=== PATIENT | female | born 1970 | race African-American/Black ===

== ENCOUNTER 2017-02-17 02:16 | Emergency (ER) | payer BC, MEDICAID ==
[~2017-02-17] VITALS: Ht 170.2 cm; Wt 114.0 kg
[2017-02-17] MEDS ORDERED: KETOROLAC 30MG/ML VIAL IV ONE (03:30)
[2017-02-17] MEDS ORDERED: HYDROCODONE/ACETAMINOPHEN 5/325MG TABLET PO ONE (03:30)
[2017-02-17] MEDS ORDERED: CLONIDINE 0.2MG TABLET PO ONE (03:30)
[2017-02-17 05:54] VITALS: BP 183/91
== END 2017-02-17 05:55 | disposition home or self-care (01) ==
LOC: ER 02:16
DX: S16.1XXA Strain of muscle, fascia and tendon at neck level, initial encounter (principal); I10 Essential (primary) hypertension; R13.10 Dysphagia, unspecified; X58.XXXA Exposure to other specified factors, initial encounter; Y93.9 Activity, unspecified; Y92.9 Unspecified place or not applicable; Z87.19 Personal history of other diseases of the digestive system
CPT/HCPCS: 93005; 96374; 99284; J1885; Z7610